=== PATIENT | female | born 1990 | race African-American/Black ===

== ENCOUNTER 2018-10-02 01:09 | Emergency (ER) | payer OTHER ==
[~2018-10-02] VITALS: Ht 142.2 cm; Wt 49.9 kg
[2018-10-02 01:17] VITALS: TEMP 97.7
[2018-10-02 03:40] VITALS: BP 120/78
== END 2018-10-02 03:41 | disposition home or self-care (01) ==
LOC: ED 01:09
DX: S82.832A Other fracture of upper and lower end of left fibula, initial encounter for closed fracture (principal); W17.89XA Other fall from one level to another, initial encounter
CPT/HCPCS: 99283